=== PATIENT | female | born 1960 | race Caucasian/White ===

== ENCOUNTER 2018-07-16 15:10 | Inpatient (IN) | payer MEDICAID ==
[~2018-07-16] VITALS: Ht 160 cm; Wt 80.9 kg
[~2018-07-16 15:10] MED LIST: COL100 PO; FER300 PO; IND10 PO; IRON; PRILOSEC20 MG PO
[2018-07-16 15:11] VITALS: Ht 160 cm; Wt 80.9 kg
[2018-07-16 16:49] LABS: CALCIUM 8.7 mg/dL (8.5-10.1); CHLORIDE SERUM 109 mmol/L (98-107); CREATININE SERUM 0.8 mg/dL (0.6-1.0); GFR1 > 60 mL/min; GLUCOSE SERUM 137 mg/dL (74-106); SODIUM SERUM 145 mmol/L (136-145)
[2018-07-16 16:54] LABS: ALBUMIN 3.4 g/dL (3.4-5.0); ALKALINE PHOSPHATASE 103 U/L (46-116); ALT/SGPT 39 U/L (14-59); AST/SGOT 28 U/L (15-37); BILIRUBIN TOTAL 0.78 mg/dL (0.20-1.00); TOTAL PROTEIN, SERUM 6.9 g/dL (6.4-8.2)
[2018-07-16 17:00] LABS: BASOPHIL % 0.2 % (0-2); PLATELET COUNT 156 x10^3mcL (130-400); RED CELL DISTRIBUTION WIDTH 13.3 % (11.5-14.5)
[2018-07-16 18:16] VITALS: BP 107/64
[2018-07-16 18:17] LABS: FREE T4 0.9 ng/dL (0.76-1.46); FREE THYROXINE INDEX 2.1 ug/dL (1.4-4.5)
[2018-07-16 18:30] LABS: CHOLESTEROL/HDL RATIO 2.5; MAGNESIUM 1.5 mg/dL (1.8-2.4); PHOSPHOROUS 3.4 mg/dL (2.5-4.9)
[2018-07-16 18:38] LABS: T3 TOTAL 1.05 ng/mL
[2018-07-16 20:45] VITALS: BP 110/58
[2018-07-17 06:00] VITALS: BP 108/62
[2018-07-17 06:51] LABS: BASOPHIL % 0.3 % (0-2); RED CELL DISTRIBUTION WIDTH 13.4 % (11.5-14.5)
[2018-07-17 07:04] LABS: CALCIUM 8.2 mg/dL (8.5-10.1); CARBON DIOXIDE 24.2 mmol/L (21-32); CHLORIDE SERUM 113 mmol/L (98-107); CREATININE SERUM 0.7 mg/dL (0.6-1.0); GFR1 > 60 mL/min; GLUCOSE SERUM 110 mg/dL (74-106); MAGNESIUM 1.6 mg/dL (1.8-2.4); PHOSPHOROUS 3.3 mg/dL (2.5-4.9); POTASSIUM SERUM 3.8 mmol/L (3.5-5.1); SODIUM SERUM 147 mmol/L (136-145)
[2018-07-17 07:27] LABS: UA SPECIFIC GRAVITY 1.025 (1.005-1.035); microscopic required? YES; urine erythrocyte NEGATIVE (NEGATIVE)
[2018-07-17 07:43] LABS: AMPHETAMINE QUAL UR NONE DETECTED (See below)
[2018-07-17 08:31] LABS: PLATELET COUNT 116 x10^3mcL (130-400)
[2018-07-17 08:47] VITALS: BP 114/53
[2018-07-17 09:32] LABS: TOTAL IRON BINDING CAPACITY 317 ug/dL (250-450)
[2018-07-17 09:43] LABS: IRON 27 ug/dL (50-170)
[2018-07-17 10:13] LABS: RED BLOOD CELLS 3.36 M/mm3 (4.10-5.10)
[2018-07-17 12:58] VITALS: BP 120/61
[2018-07-17 17:14] VITALS: BP 112/50
[2018-07-17 20:25] VITALS: BP 110/53
[2018-07-17 22:10] LABS: BASOPHIL % 0.3 % (0-2); PLATELET COUNT 90 x10^3mcL (130-400); RED CELL DISTRIBUTION WIDTH 14.2 % (11.5-14.5)
[2018-07-18 05:04] VITALS: BP 127/64
[2018-07-18 07:28] LABS: BASOPHIL % 0.3 % (0-2); CALCIUM 8.3 mg/dL (8.5-10.1); CHLORIDE SERUM 110 mmol/L (98-107); CREATININE SERUM 0.6 mg/dL (0.6-1.0); GFR1 > 60 mL/min; GLUCOSE SERUM 122 mg/dL (74-106); MAGNESIUM 1.7 mg/dL (1.8-2.4); PHOSPHOROUS 3.4 mg/dL (2.5-4.9); POTASSIUM SERUM 3.7 mmol/L (3.5-5.1); RED CELL DISTRIBUTION WIDTH 13.9 % (11.5-14.5); SODIUM SERUM 144 mmol/L (136-145)
[2018-07-18 07:29] LABS: PLATELET COUNT 87 x10^3mcL (130-400)
[2018-07-18 08:50] VITALS: BP 122/60
[2018-07-18 13:44] LABS: BASOPHIL % 0.3 % (0-2); RED CELL DISTRIBUTION WIDTH 13.8 % (11.5-14.5)
[2018-07-18 13:59] LABS: PLATELET COUNT 83 x10^3mcL (130-400)
[2018-07-18 14:02] VITALS: BP 106/48
[2018-07-18] MEDS ORDERED: COR20 PO (15:26)
[2018-07-18 16:58] VITALS: BP 106/48
== END 2018-07-18 18:03 | disposition home or self-care (01) | DRG 280 ==
LOC: ED 15:10 → DU 17:29
PROVIDERS: Family Medicine; Internal Medicine Gastroenterology; Specialist
PROC: 06L38CZ Occlusion of Esophageal Vein with Extraluminal Device, Via Natural or Artificial Opening Endoscopic (ICD-10-PCS; principal; 2018-07-17 11:30)
DX: K70.30 Alcoholic cirrhosis of liver without ascites (principal); N17.0 Acute kidney failure with tubular necrosis; I85.11 Secondary esophageal varices with bleeding; D62 Acute posthemorrhagic anemia; E83.42 Hypomagnesemia; N20.0 Calculus of kidney; K80.20 Calculus of gallbladder without cholecystitis without obstruction; R73.03 Prediabetes; Z68.31 Body mass index [BMI] 31.0-31.9, adult
CPT/HCPCS: 43205; 43235; 83880; 84439; G0480; J1200; J1610; J2250; J2310; J3010; J3490; J7030; Q0092

== ENCOUNTER 2019-10-18 17:49 | Inpatient (IN) | payer OTHER ==
[~2019-10-18] VITALS: Ht 160 cm; Wt 90.3 kg
[~2019-10-18 17:49] MED LIST changes: +COR20 PO
[2019-10-18 18:40] VITALS: Ht 160 cm; Wt 90.3 kg
[2019-10-18 20:03] LABS: CALCIUM 8.3 mg/dL (8.5-10.1); CARBON DIOXIDE 26.9 mmol/L (21-32); CHLORIDE SERUM 105 mmol/L (98-107); CREATININE SERUM 0.6 mg/dL (0.6-1.0); GFR1 > 60 mL/min; GLUCOSE SERUM 128 mg/dL (74-106); POTASSIUM SERUM 4.1 mmol/L (3.5-5.1); SODIUM SERUM 142 mmol/L (136-145)
[2019-10-18 20:06] LABS: PLATELET COUNT 112 x10^3mcL (130-400); RED CELL DISTRIBUTION WIDTH 17.1 % (11.5-14.5)
[2019-10-18 20:07] LABS: BASOPHIL % 0.3 % (0-2)
[2019-10-18 20:11] LABS: ALKALINE PHOSPHATASE 82 U/L (46-116); ALT/SGPT 30 U/L (14-59); AST/SGOT 31 U/L (15-37); BILIRUBIN TOTAL 0.74 mg/dL (0.20-1.00); TOTAL PROTEIN, SERUM 6.3 g/dL (6.4-8.2)
[2019-10-18 20:12] LABS: ALBUMIN 3.1 g/dL (3.4-5.0)
[2019-10-18 22:33] LABS: CHOLESTEROL/HDL RATIO 2.3; MAGNESIUM 1.6 mg/dL (1.8-2.4); PHOSPHOROUS 3.1 mg/dL (2.5-4.9)
[2019-10-19 01:14] VITALS: BP 108/60
[2019-10-19 02:24] LABS: BASOPHIL % 0.3 % (0-2)
[2019-10-19 02:33] LABS: PLATELET COUNT 117 x10^3mcL (130-400); RED CELL DISTRIBUTION WIDTH 18.1 % (11.5-14.5)
[2019-10-19 05:28] VITALS: BP 106/56
[2019-10-19 06:21] LABS: BASOPHIL % 0.5 % (0-2)
[2019-10-19 06:39] LABS: CALCIUM 8.2 mg/dL (8.5-10.1); CARBON DIOXIDE 27.1 mmol/L (21-32); CHLORIDE SERUM 107 mmol/L (98-107); CREATININE SERUM 0.7 mg/dL (0.6-1.0); GFR1 > 60 mL/min; GLUCOSE SERUM 106 mg/dL (74-106); MAGNESIUM 1.7 mg/dL (1.8-2.4); POTASSIUM SERUM 4.3 mmol/L (3.5-5.1); SODIUM SERUM 143 mmol/L (136-145)
[2019-10-19 07:34] LABS: PLATELET COUNT 110 x10^3mcL (130-400); RED CELL DISTRIBUTION WIDTH 19.6 % (11.5-14.5)
[2019-10-19 07:54] LABS: microscopic required? NO
[2019-10-19 08:17] LABS: urine erythrocyte NEGATIVE (NEGATIVE)
[2019-10-19 08:27] LABS: AMPHETAMINE QUAL UR NONE DETECTED (See below)
[2019-10-19 09:15] VITALS: BP 89/47
[2019-10-19 09:17] LABS: FREE T4 0.95 ng/dL (0.76-1.46); FREE THYROXINE INDEX 2.2 ug/dL (1.4-4.5); T4(THYROXINE) 6.7 ug/dL (4.7-13.3)
[2019-10-19 09:18] LABS: T3 TOTAL 0.83 ng/mL
[2019-10-19 10:37] LABS: TOTAL IRON BINDING CAPACITY 388 ug/dL (250-450)
[2019-10-19 10:51] LABS: IRON 21 ug/dL (50-170)
[2019-10-19 13:20] VITALS: BP 108/52
[2019-10-19 17:31] VITALS: BP 113/58
[2019-10-19 19:50] VITALS: BP 104/53
[2019-10-20] VITALS (7 sets, daily range): BP systolic 90–105; BP diastolic 33–55
[2019-10-20 06:33] LABS: CALCIUM 8.1 mg/dL (8.5-10.1); CHLORIDE SERUM 114 mmol/L (98-107); CREATININE SERUM 0.7 mg/dL (0.6-1.0); GFR1 > 60 mL/min; GLUCOSE SERUM 103 mg/dL (74-106); MAGNESIUM 1.8 mg/dL (1.8-2.4); PHOSPHOROUS 3.1 mg/dL (2.5-4.9); SODIUM SERUM 150 mmol/L (136-145)
[2019-10-20 06:38] LABS: BASOPHIL % 0 % (0-2); PLATELET COUNT 107 x10^3mcL (130-400); RED CELL DISTRIBUTION WIDTH 18.8 % (11.5-14.5)
[2019-10-21 05:20] VITALS: BP 108/50
[2019-10-21 06:56] LABS: BASOPHIL % 0.4 % (0-2)
[2019-10-21 07:09] LABS: PLATELET COUNT 103 x10^3mcL (130-400); RED CELL DISTRIBUTION WIDTH 19.3 % (11.5-14.5)
[2019-10-21 07:17] LABS: CALCIUM 8.2 mg/dL (8.5-10.1); CARBON DIOXIDE 24.3 mmol/L (21-32); CHLORIDE SERUM 109 mmol/L (98-107); CREATININE SERUM 0.6 mg/dL (0.6-1.0); GFR1 > 60 mL/min; GLUCOSE SERUM 100 mg/dL (74-106); POTASSIUM SERUM 3.4 mmol/L (3.5-5.1); SODIUM SERUM 142 mmol/L (136-145)
[2019-10-21 08:32] VITALS: BP 111/54
[2019-10-21 12:44] VITALS: BP 103/40
[2019-10-21 13:28] VITALS: BP 124/52
[2019-10-21] MEDS ORDERED: LAC30L PO (14:31)
[2019-10-21] MEDS ORDERED: FER300 PO (14:31)
[2019-10-21] MEDS ORDERED: ANUSOL-HC30 GM TOP (14:32)
[2019-10-21 14:35] VITALS: BP 124/52
== END 2019-10-21 15:35 | disposition home or self-care (01) | DRG 254 ==
LOC: ED 17:49 → MU 21:07 → DU 21:07 → MU 10-19 22:12
PROVIDERS: Emergency Medicine; Internal Medicine; ADMIT Family Medicine
PROC: 30233N1 Transfusion of Nonautologous Red Blood Cells into Peripheral Vein, Percutaneous Approach (ICD-10-PCS; principal; 2019-10-18)
PROC: 0DJ08ZZ Inspection of Upper Intestinal Tract, Via Natural or Artificial Opening Endoscopic (ICD-10-PCS; 2019-10-19)
PROC: 0DBF8ZX Excision of Right Large Intestine, Via Natural or Artificial Opening Endoscopic, Diagnostic (ICD-10-PCS; 2019-10-20)
DX: K64.8 Other hemorrhoids (principal); N17.0 Acute kidney failure with tubular necrosis; K70.30 Alcoholic cirrhosis of liver without ascites; D69.59 Other secondary thrombocytopenia; D62 Acute posthemorrhagic anemia; K57.30 Diverticulosis of large intestine without perforation or abscess without bleeding; I10 Essential (primary) hypertension; F10.20 Alcohol dependence, uncomplicated; Y90.0 Blood alcohol level of less than 20 mg/100 ml; Z68.35 Body mass index [BMI] 35.0-35.9, adult; Z80.0 Family history of malignant neoplasm of digestive organs; Z82.49 Family history of ischemic heart disease and other diseases of the circulatory system; Z83.3 Family history of diabetes mellitus
CPT/HCPCS: 43235; 45378; 83880; 84439; C9113; G0378; G0480; J1200; J1610; J2250; J2310; J2354; J2405; J2916; J3010; J3490; J7030; J7040; J7042; P9016; Q0092

== ENCOUNTER 2020-03-21 16:18 | Inpatient (IN) | payer OTHER ==
[~2020-03-21] VITALS: Ht 160 cm; Wt 90.7 kg
[~2020-03-21 16:18] MED LIST changes: +ANUSOL-HC30 GM TOP; +LAC30L PO
[2020-03-21 16:26] VITALS: Ht 160 cm; Wt 90.7 kg
[2020-03-21 18:10] LABS: BASOPHIL % 0.3 % (0-2); PLATELET COUNT 162 x10^3mcL (130-400)
[2020-03-21 18:51] LABS: ERYTHROCYTE SED RATE 18 mm/hr (0-30)
[2020-03-21 18:56] LABS: CALCIUM 8.6 mg/dL (8.5-10.1); CARBON DIOXIDE 24.1 mmol/L (21-32); CHLORIDE SERUM 105 mmol/L (98-107); CREATININE SERUM 0.8 mg/dL (0.6-1.0); GFR1 > 60 mL/min; GLUCOSE SERUM 136 mg/dL (74-106); POTASSIUM SERUM 4.2 mmol/L (3.5-5.1); SODIUM SERUM 139 mmol/L (136-145)
[2020-03-21 19:06] LABS: ALBUMIN 3.6 g/dL (3.4-5.0); ALKALINE PHOSPHATASE 101 U/L (46-116); ALT/SGPT 35 U/L (14-59); AST/SGOT 28 U/L (15-37); BILIRUBIN TOTAL 1.25 mg/dL (0.20-1.00); TOTAL PROTEIN, SERUM 6.9 g/dL (6.4-8.2)
[2020-03-21 19:06] LABS: T3 TOTAL 0.99 ng/mL
[2020-03-21 19:11] LABS: FREE T4 0.94 ng/dL (0.76-1.46); FREE THYROXINE INDEX 2.5 ug/dL (1.4-4.5); T4(THYROXINE) 7.8 ug/dL (4.7-13.3)
[2020-03-21 19:49] LABS: CHOLESTEROL/HDL RATIO 2.6
[2020-03-21 20:28] LABS: CK-MB 0.5 ng/mL (0-3.6)
[2020-03-22 06:48] VITALS: BP 95/58
[2020-03-22 07:38] VITALS: BP 114/62
[2020-03-22 07:59] VITALS: BP 114/62; BP 123/67
[2020-03-22 08:50] LABS: BASOPHIL % 0.3 % (0-2)
[2020-03-22 09:02] LABS: PLATELET COUNT 117 x10^3mcL (130-400); RED CELL DISTRIBUTION WIDTH 17.1 % (11.5-14.5)
[2020-03-22 09:08] LABS: CALCIUM 7.7 mg/dL (8.5-10.1); CHLORIDE SERUM 108 mmol/L (98-107); CREATININE SERUM 0.8 mg/dL (0.6-1.0); GFR1 > 60 mL/min; GLUCOSE SERUM 128 mg/dL (74-106); MAGNESIUM 1.5 mg/dL (1.8-2.4); PHOSPHOROUS 3.6 mg/dL (2.5-4.9); POTASSIUM SERUM 4.1 mmol/L (3.5-5.1); SODIUM SERUM 143 mmol/L (136-145)
[2020-03-22 16:05] VITALS: BP 114/56
[2020-03-22 18:30] LABS: microscopic required? NO
[2020-03-22 19:10] LABS: UA SPECIFIC GRAVITY >=1.030 (1.005-1.035); urine erythrocyte NEGATIVE (NEGATIVE)
[2020-03-22 19:23] LABS: AMPHETAMINE QUAL UR NONE DETECTED (See below)
[2020-03-22 19:53] VITALS: BP 97/49
[2020-03-23 06:18] VITALS: BP 95/45
[2020-03-23 07:23] LABS: CALCIUM 7.1 mg/dL (8.5-10.1); CARBON DIOXIDE 28.6 mmol/L (21-32); CHLORIDE SERUM 110 mmol/L (98-107); CREATININE SERUM 0.7 mg/dL (0.6-1.0); GFR1 > 60 mL/min; GLUCOSE SERUM 124 mg/dL (74-106); MAGNESIUM 1.8 mg/dL (1.8-2.4); PHOSPHOROUS 2.7 mg/dL (2.5-4.9); POTASSIUM SERUM 3.9 mmol/L (3.5-5.1); SODIUM SERUM 143 mmol/L (136-145)
[2020-03-23 07:56] LABS: BASOPHIL % 0.4 % (0-2)
[2020-03-23 08:13] VITALS: BP 110/51
[2020-03-23 11:29] LABS: rbc morphology (normal/abnorm) ABNORMAL (NORMAL)
[2020-03-23 11:54] VITALS: BP 112/57
[2020-03-23 12:29] LABS: PLATELET COUNT 80 x10^3mcL (130-400)
[2020-03-23 19:26] VITALS: BP 107/57
[2020-03-24 05:50] VITALS: BP 96/46
[2020-03-24 07:08] LABS: CALCIUM 7.4 mg/dL (8.5-10.1); CARBON DIOXIDE 27.4 mmol/L (21-32); CHLORIDE SERUM 109 mmol/L (98-107); CREATININE SERUM 0.7 mg/dL (0.6-1.0); GFR1 > 60 mL/min; GLUCOSE SERUM 119 mg/dL (74-106); POTASSIUM SERUM 3.7 mmol/L (3.5-5.1); SODIUM SERUM 142 mmol/L (136-145)
[2020-03-24 07:30] LABS: BASOPHIL % 0.4 % (0-2)
[2020-03-24 07:32] LABS: PLATELET COUNT 71 x10^3mcL (130-400); RED CELL DISTRIBUTION WIDTH 16.8 % (11.5-14.5)
[2020-03-24 09:13] VITALS: BP 101/51
[2020-03-24] MEDS ORDERED: FER300 PO (09:27)
[2020-03-24] MEDS ORDERED: LAC30L PO (09:28)
[2020-03-24] MEDS ORDERED: PROTONIX20 MG PO (12:39)
[2020-03-24 12:43] VITALS: BP 111/51
[2020-03-24 13:03] VITALS: BP 111/51
== END 2020-03-24 14:25 | disposition home or self-care (01) ==
LOC: ED 16:18 → DU 18:24
PROVIDERS: Internal Medicine Gastroenterology; Specialist; ADMIT Student in an Organized Health Care Education/Training Program; ATTEND Student in an Organized Health Care Education/Training Program
PROC: 06L38CZ Occlusion of Esophageal Vein with Extraluminal Device, Via Natural or Artificial Opening Endoscopic (ICD-10-PCS; principal; 2020-03-22 09:45)
PROC: 30233N1 Transfusion of Nonautologous Red Blood Cells into Peripheral Vein, Percutaneous Approach (ICD-10-PCS; 2020-03-23)
DX: K74.60 Unspecified cirrhosis of liver (principal); N17.0 Acute kidney failure with tubular necrosis; I85.11 Secondary esophageal varices with bleeding; K76.6 Portal hypertension; D62 Acute posthemorrhagic anemia; Z83.3 Family history of diabetes mellitus; I10 Essential (primary) hypertension; Z82.49 Family history of ischemic heart disease and other diseases of the circulatory system; Z80.0 Family history of malignant neoplasm of digestive organs
CPT/HCPCS: 36600; 83880; 84439; C9113; G0378; G0480; J1200; J1610; J2250; J2310; J2354; J2405; J3010; J3475; J3490; J7030; P9016; Q0092